=== PATIENT | female | born 1990 | race Caucasian/White ===

== ENCOUNTER 2016-11-02 10:00 | Emergency (ER) | payer SELFPAY ==
--- NOTE | ~2016-11-02 | CR72 ---
[facility] A Service of [facility] & [facility] / [facility] RADIOLOGY TEXT RESULTS PATIENT: ADALBERTO STEPHENS LOCATION: [facility] : [birth year] UNIT #: [id number] AGE: [address]: Aftab Cassidy MD SEX: F ORDER DR: [id number] [facility] [address] [place], [place] [address] [id number] MR#: [id number] Acc #: [id number] NAME: ADALBERTO STEPHENS : 1990 SEX: F STUDY DATE/TIME: 11/02/2016 11:40 UNIT: [facility] ROOM: STUDY DESCRIPTION: CR Chest Single View Portable Attending Physician: Aftab Cassidy M.D. Ordering Physician: Aftab Cassidy M.D. [facility] REPORT This report is preliminary unless electronic signature is present EXAM Frontal chest, 11/02/2016. INDICATION 26-year-old female with chest pain, blurred vision, symptoms began today, asthma, short of breath. TECHNIQUE Frontal chest compared with 02/12/2016. FINDINGS Cardiac silhouette is unremarkable and the vascularity is normal. Lungs are clear. No pneumothorax or effusion. IMPRESSION Negative frontal chest. No change. Dictated by... Renato Isbell M.D. THIS IS AN ELECTRONICALLY VERIFIED REPORT Renato Isbell M.D. at 11/03/2016 8:50 AM Brittany TD: 11/02/2016 22:10 JOB #: [id number] MEDICAL IMAGING REPORT Page 1 of 1 COPY
--- NOTE | ~2016-11-02 | EKG ---
PATIENT: ADALBERTO STEPHENS UNIT #: [id number] Ventricular Rate: 71 BPM Atrial Rate: 71 BPM P-R Interval: 118 ms QRS Duration: 78 ms Q-T Interval: 394 ms QTC Calculation(Bezet): 428 ms P [place]: 31 degrees Calculated R [place]: 55 degrees Calculated T [place]: 13 degrees Diagnosis Line: Normal sinus rhythm with sinus arrhythmia Diagnosis Line: Normal ECG Diagnosis Line: When compared with ECG of 07-JAN-2014 14:57, Diagnosis Line: No significant change was found Diagnosis Line: Confirmed by GILBERT JOHNSON MD ([id number]) on 11/06/2016 Diagnosis Line: 2:46:22 PM INTERPRETING MD: ALEX CARO
[~2016-11-02 10:00] MED LIST: ADVAIR 100-501 EAC1 IH; JANUVIA PO; KEPPRA1000 MG PO; KEPPRA500 MG PO; LANTUS100 U/ML; MAGIC MOUTHWASH MT; NEURONTIN PO; REMERON PO
[2016-11-02 12:01] LABS: BASOPHIL# 0.1 X10e3 (0-0.3); BASOPHIL% 0.7 % (0-2.5); EOSINOPHIL# 0.1 X10e3 (0-0.7); EOSINOPHIL% 1.3 % (0.0-7.0); HEMATOCRIT 40.9 % (35.0-45.0); HEMOGLOBIN 13.9 gm/dL (12.0-16.0); LYMPHOCYTE# 3.3 X10e3 (1.0-3.5); LYMPHOCYTE% 30.5 % (17.0-45.0); MEAN CELL VOLUME 94.5 FL (83-96); MEAN CORPUSCULAR HGB CONC 33.9 g/dL (30-36); MEAN PLATELET VOLUME 8.2 FL (6.5-11.5); MONOCYTE# 0.6 X10e3 (0-1.0); MONOCYTE% 5.9 % (3.0-12.0); NEUTROPHIL# 6.6 X10e3 (1.5-7.1); NEUTROPHIL% 61.6 % (40-75); PLATELET COUNT 277 X10e3 (140-420); RED BLOOD COUNT 4.32 X10e (3.90-5.30); RED CELL DISTRIBUTION WIDTH 12.6 % (11.0-15.5); WHITE BLOOD COUNT 10.7 X10e3 (4.0-10.5)
[2016-11-02 12:07] LABS: DIFF IND NO
[2016-11-02 12:08] LABS: POC - CKMB <1.0 ng/mL (0.0-7.9); POC - TROPONIN <0.05 ng/mL (<=0.05)
[2016-11-02 12:28] LABS: BUN/CREATININE RATIO 13.33; CALCIUM SERUM 8.6 mg/dL (8.4-10.2); CREATININE SERUM 0.9 mg/dL (0.6-1.4); GLOM FILT RATE Estimated 88.3 mL/min (>60); POTASSIUM 4.1 mmol/L (3.5-5.1)
== END 2016-11-02 13:45 | disposition home or self-care (01) ==
LOC: CED 10:00
PROVIDERS: Emergency Medicine
DX: R07.89 Other chest pain (principal); E11.9 Type 2 diabetes mellitus without complications; K21.9 Gastro-esophageal reflux disease without esophagitis; J45.909 Unspecified asthma, uncomplicated; Z91.030 Bee allergy status; Z88.8 Allergy status to other drugs, medicaments and biological substances; Z91.040 Latex allergy status
CPT/HCPCS: 71010; 80048; 82553; 84484; 85025; 85379; 93005; 99285

== ENCOUNTER 2016-11-13 10:35 | Emergency (ER) | payer SELFPAY ==
[2016-11-13 11:00] LABS: BASOPHIL# 0.2 X10e3 (0-0.3); EOSINOPHIL# 0.2 X10e3 (0-0.7); HEMATOCRIT 44.8 % (35.0-45.0); HEMOGLOBIN 15.2 gm/dL (12.0-16.0); LYMPHOCYTE# 4.6 X10e3 (1.0-3.5); LYMPHOCYTE% 29.8 % (17.0-45.0); MEAN CELL VOLUME 94.5 FL (83-96); MEAN CORPUSCULAR HGB CONC 33.9 g/dL (30-36); MEAN PLATELET VOLUME 8.6 FL (6.5-11.5); MONOCYTE# 0.9 X10e3 (0-1.0); MONOCYTE% 5.8 % (3.0-12.0); NEUTROPHIL# 9.7 X10e3 (1.5-7.1); NEUTROPHIL% 62.4 % (40-75); PLATELET COUNT 338 X10e3 (140-420); RED BLOOD COUNT 4.75 X10e (3.90-5.30); RED CELL DISTRIBUTION WIDTH 12.4 % (11.0-15.5); WHITE BLOOD COUNT 15.5 X10e3 (4.0-10.5)
[2016-11-13 11:04] LABS: DIFF IND YES
[2016-11-13 11:23] LABS: BUN/CREATININE RATIO 12.22; CALCIUM SERUM 9.3 mg/dL (8.4-10.2); CREATININE SERUM 0.9 mg/dL (0.6-1.4); GLOM FILT RATE Estimated 88.3 mL/min (>60)
[2016-11-13 11:33] LABS: URINE SOURCE CLEAN CATCH
[2016-11-13 11:43] LABS: URINE APPEARANCE TURBID; URINE BILIRUBIN NEG (NEG); URINE BLOOD NEG (NEG); URINE COLOR YELLOW; URINE GLUCOSE NEG (NEG); URINE KETONE NEG (NEG); URINE LEUKOCYTE ESTERASE NEG (NEG); URINE NITRATE NEG (NEG); URINE PROTEIN NEG (NEG); URINE SPECIFIC GRAVITY 1.021 (1.003-1.035)
[2016-11-13 11:44] LABS: PLATELET ESTIMATE NORMAL (NORMAL); RBC NORMAL YES
[2016-11-13 12:01] LABS: CULTURE INDICATED? NO
[2016-11-13 12:21] LABS: AMPHETAMINE NEG (NEG); BARBITURATES NEG (NEG); BENZODIAZEPINES NEG (NEG); COCAINE NEG (NEG); MARIJUANA POS (NEG); OPIATES NEG (NEG); TRICYCLIC ANTIDEPRESSANTS NEG (NEG); U METHADONE NEG (NEG)
== END 2016-11-13 12:30 | disposition home or self-care (01) ==
LOC: CED 10:35
PROVIDERS: Emergency Medicine
DX: G40.909 Epilepsy, unspecified, not intractable, without status epilepticus (principal); E87.6 Hypokalemia; J45.909 Unspecified asthma, uncomplicated; Z91.040 Latex allergy status; Z91.030 Bee allergy status; Z88.5 Allergy status to narcotic agent
CPT/HCPCS: 36415; 80048; 80307; 81003; 82947; 84703; 85025; 96365; 99285; J1953